=== PATIENT | female | born 2005 | race African-American/Black ===

== ENCOUNTER 2025-04-01 18:48 | Emergency (ER) | payer OTHER, SELFPAY ==
--- NOTE | 2025-04-01 18:53 | ED_ITS ---
HPI - URI/Sore Throat General Chief Complaint: Upper Respiratory Infection Stated Complaint: Sore throat Time Seen by Provider: 04/01/25 19:01 Source: patient, RN notes reviewed and old records reviewed Mode of arrival: ambulatory Limitations: no limitations History of Present Illness HPI Narrative: 20-year-old female presents to the [facility] with 2 day history of sore throat worse on the right than left. No treatment prior to arrival Denies any other symptom Related Data Home Medications ?Medication ?Instructions ?Recorded ?Confirmed ?Last Taken ?Type No Home Medications 04/01/25 04/01/25 Unknown History Allergies Allergy/AdvReac Type Severity Reaction Status Date / Time No Known Allergies Allergy Verified 04/01/25 19:04 Review of Systems Review of Systems: All systems reviewed & are unremarkable except as noted in HPI and below Constitutional: Constitutional: Reports no additional constitutional complaints ENT: Reports as per HPI and Reports sore throat Cardiovascular: Cardiovascular: Reports no additional cardiovascular complaints, Denies chest pain and Denies dyspnea Respiratory: Respiratory: Reports no additional respiratory complaints, Denies chest congestion, Denies cough and Denies dyspnea Musculoskeletal: Musculoskeletal: Reports no additional musculoskeletal complaints Integumentary/Breasts: Skin/Breast: Reports system reviewed and no additional complaints, except as docu PMFSH Comments At the time of my signature, I reviewed and agree with the nursing past medical, surgical, social, and family history. There is no relevant family history pertinent to the patient complaint. Exam Const: General: cooperative, healthy appearing, comfortable, no acute distress, well developed, alert and well nourished Nutritional Appearance: well nourished Orientation/consciousness: patient oriented x3 Limitations: no limitations HENMT: Head: normal to inspection Ears: hearing grossly normal bilaterally, external ears normal, TM's normal bilaterally, EAC's normal, mastoids normal and no periauricular adenopathy Face and sinus: normal facial exam, sinuses nontender and face symmetric Mouth: Yes Normal oral and palatal mucosa present, Yes lip normal, Yes tongue normal and Yes moist mucous membranes Throat: posterior oropharynx normal, uvula midline, abnormal tonsil (Without increased erythema, no hypertrophy) on the right other (Tonsil stone) and no uvular edema Eyes: General: appearance normal, both eyes and all related structures Alignment and Position: alignment normal Neck: Neck: normal visual inspection, full ROM, no lymphadenopathy and no meningeal signs Chest: Chest palpation & inspection: normal inspection of the chest Resp: Effort & Inspection: normal respiratory effort and able to speak in complete sentences Auscultation: clear to auscultation bilaterally, no crackles, no rales, no rhonchi and no wheezes Cardio: Rate: regular rate Skin: General skin exam: normal color and no rashes or lesions noted Neuro: General: patient oriented x3, gait normal, moves all extremities and no meningeal signs Cognition (Neuro): normal cognition Speech: normal speech Gait exam (Neuro): Normal gait present Extrem: General: normal to inspection, full ROM, capillary refill normal and normal gait Psych: Appearance: grossly normal and well kempt Mental Status: mental status grossly normal Speech and movement: Normal speech and movement present and Clear speech present Affect: normal affect Attitude: cooperative Course Course Level of Care: Express Care Visit Vital Signs Vital signs: Vital Signs Temperature 98.6 F 04/01/25 19:03 Pulse Rate 77 04/01/25 19:03 Respiratory Rate 18 04/01/25 19:03 Blood Pressure 102/69 04/01/25 19:03 Pulse Oximetry 100 04/01/25 19:03 Oxygen Delivery Room Air 04/01/25 19:03 Temperature 98.6 F 04/01/25 19:03 Pulse Rate 77 04/01/25 19:03 Respiratory Rate 18 04/01/25 19:03 Blood Pressure 102/69 04/01/25 19:03 Pulse Oximetry 100 04/01/25 19:03 Oxygen Delivery Room Air 04/01/25 19:03 Reviewed MDM - URI/Sore Throat MDM Narrative Medical decision making narrative: Patient sitting in exam room. Patient is nontoxic, vitals stable. Patient presents with sore throat Strep test negative, will culture No acute findings except for possible tonsil stone on the right. Patient appropriate for outpatient treatment with close follow-up Discharge instructions reviewed with patient, as well as provided in writing per nursing staff. The instructions also include specific and strict return/GO TO THE ER as well as f/u information. All questions have been answered, and the patient deny any further questions with discharge and discharge plan. Some parts of this dictation were generated by voice recognition software and may contain typographical and/or grammatical inaccuracies. Differential Diagnosis Differential diagnosis: Likely upper respiratory infection, otitis media, sinusitis, viral infection, bronchitis, influenza and pharyngitis Lab Data Labs: Lab Results 04/01/25 Range/Units 19:09 POC Grp A Strep Screen Negative (Negative) Reviewed Critical Care Time Critical Care Time Critical Care Time: No Discharge Plan Discharge Clinical Impression: Pharyngitis Patient Disposition: Home Condition: Stable Instructions: Antibiotic Form, Pharyngitis (ED) Additional Instructions: Your rapid strep swab was negative today at [facility]. A throat culture will be sent to the laboratory for further testing. If the test is positive, you will receive a phone call within 48 hours and an appropriate antibiotic will be initiated at that time. -Oral rinses such as: Salt water gargles and/or may use topical anesthetic (eg. Chloraseptic spray) or lozenges to relieve dryness or throat pain). -Frequent hand washing or hand senior policy analyst is one of the best ways to prevent spread of infection. -Using a vaporizer or humidifier at night will also help thin secretions and help with coughing up phlegm. -Follow up with primary care provider in 7-10 days if condition is not improving - For new or worsening symptoms go directly to the nearest ER You can take steps to prevent tonsil stones: ? Long Lane and floss regularly. Make sure to brush the front and back of your tongue, too. ? Gargle with salt water after eating. ? Stay hydrated by drinking plenty of water. Take Motrin alternating with Tylenol as needed Follow-up with primary care provider Patient Language: Romansh Prescriptions: No Action No Home Medications Follow-up/Referrals: UNKNOWN,DOCTOR [Non-Staff] - Time of Disposition: 19:11
--- OUTSIDE RECORDS SUMMARY | 2025-04-01 18:56 | XMS_ITS | Clinical Summary ---
Author Organization [facility] Address [address] [place] [address] Care Team Providers Care Data Base Administrator Name Role Phone Daphney Romero MD Primary Care Provider [phone] Allergies No known active allergies Medications No known medications Social History Tobacco Use Types Packs/Day Years Used Date Smoking Tobacco: Never Smokeless Tobacco: Never Tobacco Cessation:Counseling Given: Not Answered Personal Safety Answer Date Recorded Getting School Help Needed Not on file 01/27 Comments No Sex and Gender Information Value Date Recorded Sex Assigned at Not on file Legal Sex Female 3:05 AM CDT Gender Identity Not on file Sexual Orientation Not on file Obstetrics History Last Filed Vital Signs Vital Sign Reading Time Taken Comments Blood Pressure 141/90 08/11/2022 3:09 AM CDT Pulse 103 08/11/2022 3:09 AM CDT Temperature 36.6 C (97.8 F) 08/11/2022 3:09 AM CDT Respiratory Rate 16 08/11/2022 3:09 AM CDT Oxygen Saturation 99% 08/11/2022 3:09 AM CDT Inhaled Oxygen Concentration - - Weight 56.7 kg (125 lb) 08/11/2022 3:09 AM CDT Height - - Body Mass Index - - Plan of Treatment Health Maintenance Due Date Last Done Comments Cervical Cancer Screening 2003 Depression Screening 2003 Hepatitis C Screening 2003 DTaP/Tdap/Td Vaccine (1 - Tdap) 2014 Varicella Vaccines (1 of 2 - 13+ 2-dose series) 02/06/2016 HPV Vaccines (1 - 3-dose series) 2018 Meningococcal B Vaccine (1 o f 2 - Standard) 2019 Hepatitis B Screening 2021 Regular Well Visit/Exam 18-64 2021 Influenza Vaccine (Season Ended) 2025 Pneumococcal vaccine <65 Aged Out No longer eligible based on patient's age to complete this topic Insurance [employer] Care Teams Data Base Administrator Relationship Specialty Start Date End Date Daphney oRmero MD [address] [facility] [address] [place] [address] PCP - General Sports Medicine 08/11/22
--- OUTSIDE RECORDS SUMMARY | 2025-04-01 18:56 | XMS_ITS | Referral Summary ---
Author Organization [facility] Address [address] [place] [address] Care Team Providers Care Sounding Device Operator Name Role Phone Daphney Romero MD Primary Care Provider [phone] Allergies No known active allergies Medications No [...] on file Sexual Orientation Not on file Last Filed Vital Signs Vital Sign Reading [...] Mass Index - - Plan of Treatment Not on file Insurance [facility] Care Teams Sounding Device Operator Relationship Specialty Start Date End Date Daphney Romero MD [address] [facility] [address] [place], [place] [id number] PCP - General Sports Medicine 08/11/22
--- OUTSIDE RECORDS SUMMARY | 2025-04-01 18:56 | XMS_ITS | Clinical Summary ---
Author Organization [facility] Address [address] [place] [address] Care Team Providers Care Crisis Counselor Name Role Phone Anila Shelley MD Primary Care Provider [phone] Allergies No known active allergies Medications No known medications Family History Medical History Relation Comments No Known Problems Father No Known Problems Mother Relation Status Comments Father Alive Mother Alive Social History Tobacco Use Types Packs/Day Years Used Date Smoking Tobacco: Never Passive Smoke Exposure: Never Smokeless Tobacco: Never Tobacco Cessation:Counseling Given: Not Answered Alcohol Use Standard Drinks/Week Comments Yes 0 (1 standard drink = 0.6 oz pur e alcohol) rare use Comments No Sex and Gender Information Value Date Recorded Sex Assigned at Not on file Legal Sex Female 8:29 PM CDT Gender Identity Not on file Sexual Orientation Not on file Last Filed Vital Signs Vital Sign Reading Time Taken Comments Blood Pressure 120/78 01/17/2024 12:48 PM PAID SEARCH MANAGER Pulse 90 01/17/2024 12:48 PM PAID SEARCH MANAGER Temperature 37.1 C (98.8 F) 01/17/2024 12:48 PM PAID SEARCH MANAGER Respiratory Rate 16 01/17/2024 12:48 PM PAID SEARCH MANAGER Oxygen Saturation 100% 01/17/2024 12:48 PM PAID SEARCH MANAGER Inhaled Oxygen Concentration - - Weight 49.9 kg (110 lb) 01/17/2024 12:48 PM PAID SEARCH MANAGER Height 154.9 cm (5' 1 ) 01/17/2024 12:48 PM PAID SEARCH MANAGER Body Mass Index 20.78 01/17/2024 12:48 PM PAID SEARCH MANAGER Plan of Treatment Health Maintenance Due Date Last Done Comments Cervical Cancer Screening Pap Smear (Age 21 to 29) Every 3 Years 2003 Cervical Cancer Screening 2003 Annual Physical 2006 Meningococcal B Vaccine (1 of 2 - Standard) 2019 Hepatitis C 2021 COVID-19 Vaccine ( - 2023- season) 2024 DTaP, Tdap and Td Vaccines (7 - Td or Tdap) 08/12/2024 08/12/2014, 06/20/2007, 08/09/2004, Additional history exists Hepatitis B Vaccines Completed 09/05/2005, 2003, 2003 Pneumococcal Vaccine: Pediatrics (0 to 5 Years) and At-Risk Patients (6 to 49 Years) Aged Out 09/05/2005, 2003, 2003, Additional history exists No longer eligible based on patient's age to complete this topic Meningococcal Vaccine Aged Out 08/12/2014 No rufus jaspal eligible based on patient's age to complete this topic HPV Vaccines Completed 08/31/2017, 12/13/2016 RSV Immunizations Under 20 Months Aged Out No longer eligible based on patient's age to complete this topic Care Teams Crisis Counselor Relationship Specialty Start Date End Date Anila Shelley MD [facility] [address] [address] PCP - General FAMILY PRACTICE 01/17/24
--- OUTSIDE RECORDS SUMMARY | 2025-04-01 18:56 | XMS_ITS | Clinical Summary ---
Author Organization [facility] Care Team Providers Care Hand Plug Shaper Name Role Phone Unavailable Primary Care Provider Unavailabl e Social History Tobacco Use Types Packs/Day Years Used Date Smoking Tobacco: Never Assessed Comments Unknown Sex and Gender Information Value Date Recorded Sex Assigned at Not on file Legal Sex Female 3:25 PM CDT Gender Identity Not on file Sexual Orientation Not on file Plan of Treatment Health Maintenance Due Date Last Done Comments Hepatitis C Virus (HCV) Screening 2003 TdaP Immunization 2003 Human Papillomavirus (HPV) Immunization (1 - 3-dose series) 2018 Meningococcal B Immunization (1 of 2 - Standard) 2019 Hepatitis B Immunization (1 of 3 - 19+ 3-dose series) 2022 Pap Smear 02/06/2024 Influenza Immunization (#1) 2024 SARS-COV-2 Immunization (2 - season) 2024 06/29/2021 Respiratory Syncytial Virus (RSV) Immunization (Adult) (1 - 1-dose 75+ series) 2078 Meningococcal Immunization (ACWY) Aged Out No longer eligible based on patient's age to complete this topic Pneumococcal Immunization Combined Aged Out No longer eligible based on patient's age to complete this topic Rotavirus Immunization Aged Out No lo nger eligible based on patient's age to complete this topic
[2025-04-01 19:03] VITALS: BP 102/69; PULSE 77; RESP 18; TEMP 37; O2SAT 100
[2025-04-01 19:11] LABS: EDSTREPNEGPOS1 Negative (Negative)
== END 2025-04-01 19:13 | disposition home or self-care (01) ==
PROVIDERS: Emergency Provider Nurse Practitioner
DX: J02.9 Acute pharyngitis, unspecified (principal); Z86.16 Personal history of COVID-19
CPT/HCPCS: 87081; 87880; 99203; G0463

== ENCOUNTER 2025-09-25 10:19 | Outpatient (CLI) | payer OTHER, SELFPAY ==
--- NOTE | ~2025-09-25 | US_ITS ---
US breast LT limited 09/25/2025 10:53 Indication: 20-year-old female with palpable left breast abnormality Procedure: High-resolution Limited ultrasound of the left breast Comparison: No prior studies for comparison. Findings: At 12:00, 2 cm from the nipple in the area palpable concern there is an oval hypoechoic slightly heterogeneous mass with circumscribed margins, no posterior features and no internal vascularity. This mass measures 12 x 10 x 5 mm. No other masses are seen. Impression: 1: Probable benign 12 mm mass of the left breast at 12:00, 2 cm from the nipple. BI-RADS CATEGORY 3-PROBABLY BENIGN FINDING RECOMMENDATION: 6 month follow-up Limited left breast ultrasound recommended. Reviewed, dictated and finalized at location B. Impression: 1: Probable benign 12 mm mass of the left breast at 12:00, 2 cm from the nipple . BI-RADS CATEGORY 3-PROBABLY BENIGN FINDING RECOMMENDATION: 6 month follow-up Limited left breast ultrasound recommended.
--- OUTSIDE RECORDS SUMMARY | 2025-09-25 11:25 | XMS_ITS | Clinical Summary ---
Author Organization [facility] Care Team Providers Care Administrative Library Assistant Name Role Phone Unavailable Primary Care Provider [...] of 3 - 19+ 3-dose series) 2022 Influenza Immunization (#1) 2025 SARS-COV-2 Immunization (2 - season) 2025 06/29/2021 Respiratory Syncytial Virus (RSV) Immunization (Adult) [...]
--- OUTSIDE RECORDS SUMMARY | 2025-09-25 11:25 | XMS_ITS | Clinical Summary ---
Author Organization [facility] Address [address] [place] [address] Care Team Providers Care Core Composer Machine Tender Name Role Phone Daphney Romero MD Primary Care Provider [phone] Allergies No known active allergies Medications No [...] Plan of Treatment Not on file Insurance [facility] [place] Care Teams Core Composer Machine Tender Relationship Specialty Start Date End Date Daphney Romero MD [address] [phone] PCP - General Sports Medicine 08/11/22
--- OUTSIDE RECORDS SUMMARY | 2025-09-25 11:25 | XMS_ITS | Clinical Summary ---
Author Organization [facility] Address [address] [place] [address] Care Team Providers Care Vp Global Name Role Phone Anila Shelley MD Primary Care Provider [phone] Allergies No known active allergies Medications No [...] Comments Blood Pressure 120/78 01/17/2024 12:48 PM LINER INSTALLER Pulse 90 01/17/2024 12:48 PM LINER INSTALLER Temperature 37.1 C (98.8 F) 01/17/2024 12:48 PM LINER INSTALLER Respiratory Rate 16 01/17/2024 12:48 PM LINER INSTALLER Oxygen Saturation 100% 01/17/2024 12:48 PM LINER INSTALLER Inhaled Oxygen Concentration - - Weight 49.9 kg (110 lb) 01/17/2024 12:48 PM LINER INSTALLER Height 154.9 cm (5' 1) 01/17/2024 12:48 PM LINER INSTALLER Body Mass Index 20.78 01/17/2024 12:48 PM LINER INSTALLER Plan of Treatment Health Maintenance Due Date Last Done Comments Cervical Cancer Screening Pap Smear (Age 21 to 29) Every 3 Years 2003 Cervical Cancer Screening 2003 Annual Physical 2006 Meningococcal B Vaccine (1 of 2 - Standard) 2019 Hepatitis C 2021 DTaP, Tdap and Td Vaccines (7 - Td or Tdap) 08/12/2024 08/12/2014, 06/20/2007, 08/09/2004, Additional history exists COVID-19 Vaccine ( - season) 2025 Influenza Adult (#1) 2025 08/09/2004 Hepatitis B Vaccines Completed 09/05/2005, 2003, 2003 Pneumococcal Vaccine: Pediatrics (0 to 5 Years) and At-Risk Patients (6 to 49 Years) Aged Out 09/05/2005, 2003, 2003, Additional history exists No longer eligible based on patient's age to complete this topic Meningococcal Vaccine Aged Out 08/12/2014 No rufus jaspal eligible based on patient's age to complete this topic HPV Vaccines Completed 08/31/2017, 12/13/2016 Hepatitis A Vaccines Aged Out No long er eligible based on patient's age to complete this topic RSV Immunizations Under 20 Months Aged Out No longer eligible based on patient's age to complete this topic Care Teams Vp Global Relationship Specialty Start Date End Date Anila Shelley MD [facility] [address] [address] PCP - General FAMILY PRACTICE 01/17/24
== END 2025-09-25 10:20 | disposition home or self-care (01) ==
LOC: ANHFOHIMG 10:22
PROVIDERS: PCP Obstetrics & Gynecology; Visit Provider Obstetrics & Gynecology
DX: N63.20 Unspecified lump in the left breast, unspecified quadrant (principal); R92.8 Other abnormal and inconclusive findings on diagnostic imaging of breast
CPT/HCPCS: 76642